=== PATIENT | male | born 1995 | race Asian ===

== ENCOUNTER 2020-05-16 01:22 | Emergency (ER) | payer SELFPAY ==
[~2020-05-16] VITALS: Ht 170.2 cm; Wt 109.0 kg
[2020-05-16] MEDS ORDERED: KETOROLAC 60MG/2ML VIAL IM ONE (02:15)
[2020-05-16 02:37] VITALS: BP 179/95
== END 2020-05-16 02:37 | disposition home or self-care (01) ==
LOC: ER 01:22
DX: G89.29 Other chronic pain (principal); M54.5 Low back pain; R03.0 Elevated blood-pressure reading, without diagnosis of hypertension
CPT/HCPCS: 99282; J1885